=== PATIENT | male | born 1960 | race Caucasian/White ===

== ENCOUNTER 2016-07-21 15:59 | Observation (INO) | payer OTHER ==
[2016-07-21] MEDS ORDERED: RX INFO: IV CONTRAST WAS GIVEN 1 EACH MISC MISCELLANE PRN ×2 (16:20→16:21)
[2016-07-21] MEDS ORDERED: SODIUM CHLORIDE 0.9% 1,000 ML IV STA ×2 (16:20)
[2016-07-21] MEDS ORDERED: MORPHINE SULFATE 4 MG/ML SYRINGE IVP STA ×2 (16:24→17:39)
[2016-07-21] MEDS ORDERED: LORazepam 2 MG/ML SYRINGE IV STA (16:24)
[2016-07-21 16:40] LABS: Basophils # (A) 0.1 k/uL (0-0.2); Basophils % (A) 1 %; CH 29.9; CHCM 33.9; Eosinophils # (A) 0.4 k/uL (0-0.7); Eosinophils % (A) 4 %; HCT 46.2 % (39.0-53.0); HDW 2.46; HGB 15.5 gm/dL (13.0-17.5); Luc # (Auto) 0.27; Luc % (Auto) 3; Lymphocytes # (A) 3.3 k/uL (1.0-4.8); Lymphocytes % (A) 32 %; MCH 29.7 pg (25.0-35.0); MCHC 33.5 g/dL (31.0-37.0); MCV 88.8 fL (80.0-100.0); Mean Platelet Volume 7.2; Monocytes # (A) 0.7 k/uL (0-1.0); Monocytes % (A) 7 %; Neutrophils # (A) 5.4 k/uL (1.3-7.7); Neutrophils % (A) 54 %; WBC 10.1 k/uL (3.8-10.6); WBC (Perox) 9.85
--- NOTE | 2016-07-21 16:40 | ED ---
General Adult HPI - General Chief complaint: Chest Pain Stated complaint: Chest Pain Time Seen by Provider: 07/21/16 16:15 Source: patient, RN notes reviewed, old records reviewed Mode of arrival: wheelchair Limitations: no limitations - History of Present Illness Initial comments: This is a 55-year-old male here for evaluation of severe chest pain. 2 days of chest pain with significant worsening tonight. Ripping stabbing pain. Thinks it may be reflux. No history of high blood pressure Kossel diabetes pressure is of breath currently. Patient is very a couple, inability of history secondary to severe pain. No nausea vomiting or diarrhea no fevers. Travel history or sick contacts - Related Data Home Medications Medication Instructions Recorded Confirmed Aspirin [Adult Low Dose Aspirin EC] 81 mg PO DAILY 07/21/16 07/21/16 Esomeprazole Magnesium [NexIUM 22.3 mg PO DAILY 07/21/16 07/21/16 24Hr] Allergies Allergy/AdvReac Type Severity Reaction Status Date / Time No Known Allergies Allergy Verified 07/21/16 16:12 Review of Systems ROS Statement: Those systems with pertinent positive or pertinent negative responses have been documented in the HPI. ROS Other: All systems not noted in ROS Statement are negative. Past Medical History Past Medical History: No Reported History History of Any Multi-Drug Resistant Organisms: None Reported Past Surgical History: No Surgical Hx Reported Past Psychological History: No Psychological Hx Reported Smoking Status: Never smoker Past Alcohol Use History: Occasional Past Drug Use History: None Reported General Exam Limitations: no limitations General appearance: alert, in no apparent distress, anxious, in distress Head exam: Present: atraumatic, normocephalic, normal inspection Eye exam: Present: normal appearance, PERRL, EOMI. Absent: scleral icterus, conjunctival injection, periorbital swelling ENT exam: Present: normal exam, mucous membranes moist Neck exam: Present: normal inspection. Absent: tenderness, meningismus, lymphadenopathy Respiratory exam: Present: normal lung sounds bilaterally. Absent: respiratory distress, wheezes, rales, rhonchi, stridor Cardiovascular Exam: Present: regular rate, normal rhythm, normal heart sounds. Absent: systolic murmur, diastolic murmur, rubs, gallop, clicks GI/Abdominal exam: Present: soft, normal bowel sounds. Absent: distended, tenderness, guarding, rebound, rigid Extremities exam: Present: normal inspection, full ROM, normal capillary refill. Absent: tenderness, pedal edema, joint swelling, calf tenderness Back exam: Present: normal inspection Neurological exam: Present: alert, oriented X3, CN II-XII intact Psychiatric exam: Present: normal affect, normal mood Skin exam: Present: warm, dry, intact, normal color. Absent: rash Course Vital Signs 07/21/16 07/21/16 07/21/16 16:01 16:09 16:31 Temperature 98.3 F Pulse Rate 84 82 Respiratory 20 Rate Blood Pressure 160/112 159/106 O2 Sat by Pulse 98 93 L Oximetry - Reevaluation(s) Reevaluation #1: 07/21/16 18:27 Patient remains with severe chest pain EKG Findings - EKG Comments: EKG Findings:: EKG shows normal sinus rhythm rate of 84, NC 132, QRS 88, QTC 411. repeat. EKG shows normal sinus rhythm every 3, NC 134, QRS 84, QTC 404. Repeat. EKG shows normal sinus rhythm rate of 77, NC 134, QRS 80, QTC 414 Medical Decision Making - Medical Decision Making 55 male to ER for evaluation of severe anterior chest pain, ripping chest pain CT negative for dissection, patient will be admitted for cardiac observation. Patient is having current adequate pain control - Lab Data Result diagrams: 07/21/16 16:18 07/21/16 16:18 Lab Results 07/21/16 07/21/16 07/21/16 Range/Units 16:18 16:18 16:18 WBC 10.1 (3.8-10.6) k/uL RBC 5.20 (4.30-5.90) m/uL Hgb 15.5 (13.0-17.5) gm/dL Hct 46.2 (39.0-53.0) % MCV 88.8 (80.0-100.0) fL MCH 29.7 (25.0-35.0) pg MCHC 33.5 (31.0-37.0) g/dL RDW 13.0 (11.5-15.5) % Plt Count 263 (150-450) k/uL Neutrophils % 54 % Lymphocytes % 32 % Monocytes % 7 % Eosinophils % 4 % Basophils % 1 % Neutrophils # 5.4 (1.3-7.7) k/uL Lymphocytes # 3.3 (1.0-4.8) k/uL Monocytes # 0.7 (0-1.0) k/uL Eosinophils # 0.4 (0-0.7) k/uL Basophils # 0.1 (0-0.2) k/uL PT (9.0-12.0) sec INR (<1.1) APTT (22.0-30.0) sec D-Dimer (<0.60) mg/L FEU Sodium 142 (137-145) mmol/L Potassium 3.8 (3.5-5.1) mmol/L Chloride 107 (98-107) mmol/L Carbon Dioxide 23 (22-30) mmol/L Anion Gap 12 mmol/L BUN 22 H (9-20) mg/dL Creatinine 0.93 (0.66-1.25) mg/dL Est GFR (MDRD) Af Amer >60 (>60 ml/min/1.73 sqM) Est GFR (MDRD) Non-Af >60 (>60 ml/min/1.73 sqM) Glucose 106 H (74-99) mg/dL Calcium 9.5 (8.4-10.2) mg/dL Magnesium 2.1 (1.6-2.3) mg/dL Total Bilirubin 0.8 (0.2-1.3) mg/dL AST 35 (17-59) U/L ALT 46 (21-72) U/L Alkaline Phosphatase 84 (38-126) U/L Total Creatine Kinase 124 (55-170) U/L CK-MB (CK-2) 0.6 (0.0-2.4) ng/mL CK-MB (CK-2) Rel Index 0.5 Troponin I <0.012 (0.000-0.034) ng/mL NT-Pro-B Natriuret Pep pg/mL Total Protein 8.1 (6.3-8.2) g/dL Albumin 4.7 (3.5-5.0) g/dL Lipase 79 (23-300) U/L 07/21/16 07/21/16 Range/Units 16:18 16:18 WBC (3.8-10.6) k/uL RBC (4.30-5.90) m/uL Hgb (13.0-17.5) gm/dL Hct (39.0-53.0) % MCV (80.0-100.0) fL MCH (25.0-35.0) pg MCHC (31.0-37.0) g/dL RDW (11.5-15.5) % Plt Count (150-450) k/uL Neutrophils % % Lymphocytes % % Monocytes % % Eosinophils % % Basophils % % Neutrophils # (1.3-7.7) k/uL Lymphocytes # (1.0-4.8) k/uL Monocytes # (0-1.0) k/uL Eosinophils # (0-0.7) k/uL Basophils # (0-0.2) k/uL PT 10.1 (9.0-12.0) sec INR 1.0 (<1.1) APTT 22.9 (22.0-30.0) sec D-Dimer 0.67 H (<0.60) mg/L FEU Sodium (137-145) mmol/L Potassium (3.5-5.1) mmol/L Chloride (98-107) mmol/L Carbon Dioxide (22-30) mmol/L Anion Gap mmol/L BUN (9-20) mg/dL Creatinine (0.66-1.25) mg/dL Est GFR (MDRD) Af Amer (>60 ml/min/1.73 sqM) Est GFR (MDRD) Non-Af (>60 ml/min/1.73 sqM) Glucose (74-99) mg/dL Calcium (8.4-10.2) mg/dL Magnesium (1.6-2.3) mg/dL Total Bilirubin (0.2-1.3) mg/dL AST (17-59) U/L ALT (21-72) U/L Alkaline Phosphatase (38-126) U/L Total Creatine Kinase (55-170) U/L CK-MB (CK-2) (0.0-2.4) ng/mL CK-MB (CK-2) Rel Index Troponin I (0.000-0.034) ng/mL NT-Pro-B Natriuret Pep 94 pg/mL Total Protein (6.3-8.2) g/dL Albumin (3.5-5.0) g/dL Lipase (23-300) U/L - Radiology Data Radiology results: report reviewed (CTA chest is negative for acute disease), image reviewed Critical Care Time Critical Care Time: Yes Total Critical Care Time: 31 Disposition Clinical Impression: Chest pain Disposition: ADMITTED IP TO THIS HOSP Condition: Undetermined
[2016-07-21 16:50] LABS: ALT 46 U/L (21-72); AST 35 U/L (17-59); Alkaline Phosphatase 84 U/L (38-126); Anion Gap 12 mmol/L; Blood Urea Nitrogen 22 mg/dL (9-20); Calcium 9.5 mg/dL (8.4-10.2); Carbon Dioxide 23 mmol/L (22-30); Chloride 107 mmol/L (98-107); Glucose 106 mg/dL (74-99); Magnesium 2.1 mg/dL (1.6-2.3); Non-African American GFR(MDRD) >60 (>60 ml/min/1.73 sqM); Potassium 3.8 mmol/L (3.5-5.1); Sodium 142 mmol/L (137-145); Total Bilirubin 0.8 mg/dL (0.2-1.3); Total Protein 8.1 g/dL (6.3-8.2)
[2016-07-21 16:51] LABS: Creatine Kinase 124 U/L (55-170)
[2016-07-21 16:59] LABS: Partial Thromboplastin Time 22.9 sec (22.0-30.0); Prothrombin Time 10.1 sec (9.0-12.0)
[2016-07-21 17:04] LABS: Creatine Kinase MB 0.6 ng/mL (0.0-2.4); Troponin I <0.012 ng/mL (0.000-0.034)
--- NOTE | 2016-07-21 17:46 | CT ---
CTA of the aorta HISTORY: Left upper quadrant pain, chest pain Helical acquisition obtained through the aorta. Post administration of intravenous contrast images al so performed through the aorta following 100 cc Omni 350 IV. Three-dimensional reconstructions perfor med on an alternate workstation Ascending aorta measures 3.8 cm. Descending aorta measures 3.2 cm. Abdominal aorta shows normal calib er, no evident dissection. Common iliac arteries are normal. The celiac axis, superior mesenteric, in ferior mesenteric arteries, renal arteries are patent. Three-vessel arch is present. The left and rig ht subclavian, left and right common carotid arteries are present and patent proximally. The innomina te artery is patent. Spondylolysis present at L5, there is an anterolisthesis grade 1 L5-S1. Basilar atelectatic changes a re present bilaterally, there may be some pneumonitis present at the lung bases. No endobronchial les ion. Scattered emphysematous changes are present within the lungs. No endobronchial lesion, pleural o r pericardial effusion. There are coronary artery calcifications. IMPRESSION: No aortic abnormalities evident
[2016-07-21] MEDS ORDERED: NITROGLYCERIN SL TABS 0.4 MG TAB SUBLINGUAL PRN (18:00)
[2016-07-21] MEDS ORDERED: HEPARIN SODIUM,PORCINE/D5W PMX 25,000 UNIT in DEXTROSE/WATER 1 500ML.BAG IV SCH (18:00)
[2016-07-21] MEDS ORDERED: HEPARIN SODIUM,PORCINE 5,000 UNIT/ML 1 ML VIAL IV PRN (18:00)
[2016-07-21] MEDS ORDERED: HEPARIN SODIUM,PORCINE 5,000 UNIT/ML 1 ML VIAL IV ONE (18:00)
[2016-07-21] MEDS ORDERED: ASPIRIN 81 MG CHEW PO STA (18:00)
[2016-07-21] MEDS ORDERED: KETOROLAC 30 MG/ML 1 ML VIAL IVP STA (18:21)
[2016-07-21] MEDS ORDERED: HYDROmorphone 1 MG/ML 1 ML SYRINGE IVP PRN (18:21)
[2016-07-21] MEDS ORDERED: HYDROmorphone 2 MG/ML 1 ML SYRINGE IVP STA (18:21)
[2016-07-21 21:21] VITALS: BMI 27.1
[2016-07-21] MEDS ORDERED: ONDANSETRON 4 MG/2 ML VIAL IVP PRN (21:29)
[2016-07-22 00:43] LABS: Creatine Kinase 96 U/L (55-170)
[2016-07-22 00:56] LABS: Creatine Kinase MB 0.5 ng/mL (0.0-2.4); Troponin I <0.012 ng/mL (0.000-0.034)
[2016-07-22 05:46] LABS: Mean Platelet Volume 7.3
[2016-07-22 06:16] LABS: Cholesterol 216 mg/dL (<200); HDL Cholesterol 55 mg/dL (40-60); Triglycerides 109 mg/dL (<150)
[2016-07-22 06:43] LABS: Creatine Kinase 92 U/L (55-170)
[2016-07-22 06:56] LABS: Creatine Kinase MB 0.5 ng/mL (0.0-2.4); Troponin I <0.012 ng/mL (0.000-0.034)
[2016-07-22 07:37] VITALS: BP 132/83; PULSE 60; RESP 18; TEMP 97.8
--- NOTE | 2016-07-22 08:50 | P.CRDCN ---
History of Present Illness Consult date: 07/22/16 Chief complaint: Chest pain History of present illness: This is a pleasant 55-year-old gentleman with no significant past medical history presented to the emergency room with chest pain. The patient was in his usual state of health until about 3 days ago when he started experiencing discomfort in the lower left chest with some radiation to the left shoulder. The discomfort is not exertional. It's worse once he take a deep breath and once he cough as well. No associated symptoms of shortness of breath, sweating, dizziness or lightheadedness or syncope. On physical examination the chest discomfort is quite reproducible. The EKG showed sinus rhythm with nonspecific changes. 3 sets of cardiac enzymes were checked and came in to be unremarkable. The patient's chest discomfort is atypical and reproducible by examination. He was ruled out for acute coronary event. He does not have risk factors for CAD. From the cardiovascular standpoint overview, he can be discharged home on nonsteroid anti-inflammatory medications. If the chest discomfort did not improve I advised the patient to come back to the hospital. Past Medical History Past Medical History: GERD/Reflux History of Any Multi-Drug Resistant Organisms: None Reported Past Surgical History: No Surgical Hx Reported Additional Past Surgical History / Comment(s): Corrective eye surgery when 13 Past Anesthesia/Blood Transfusion Reactions: No Reported Reaction Past Psychological History: No Psychological Hx Reported Smoking Status: Former smoker Past Alcohol Use History: Occasional Past Drug Use History: None Reported - Past Family History Father Additional Family Medical History / Comment(s): Parkinsons Mother Family Medical History: No Reported History Medications and Allergies Home Medications Medication Instructions Recorded Confirmed Type Aspirin [Adult Low Dose Aspirin EC] 81 mg PO DAILY 07/21/16 07/21/16 History Esomeprazole Magnesium [NexIUM 22.3 mg PO DAILY 07/21/16 07/21/16 History 24Hr] Allergies Allergy/AdvReac Type Severity Reaction Status Date / Time No Known Allergies Allergy Verified 07/21/16 21:15 Physical Exam Vitals: Vital Signs Temp Pulse Pulse Resp BP BP Pulse Ox 07/22/16 08:00 60 18 07/22/16 07:37 97.8 F 60 18 132/83 95 07/22/16 03:57 16 07/22/16 03:54 98.0 F 64 16 109/74 93 L 05/08/17 00:00 16 07/21/16 23:49 97.7 F 65 16 112/77 93 L 07/21/16 21:15 18 07/21/16 19:58 97.7 F 70 16 139/87 95 07/21/16 18:28 98.2 F 76 18 126/84 96 Intake and Output 07/21/16 07/22/16 07/22/16 22:59 06:59 14:59 Intake Total 155.277 Balance 155.277 Intake: Intake, IV Titration 155.277 Amount Heparin Sodium,Porcine/ 155.277 D5w Pmx 25,000 unit In Dextrose/Water 1 500ml. bag @ 11 UNITS/KG/HR 19. 95 mls/hr IV .Q24H LENNY Rx #:[id number] Other: # Voids 1 1 Weight 90.7 kg - Constitutional General appearance: no acute distress - Respiratory Respiratory: bilateral: CTA - Cardiovascular Rhythm: regular Heart sounds: normal: S1, S2 Results 07/22/16 05:18 07/21/16 16:18 Cardiac Enzymes 07/21/16 07/22/16 Range/Units 23:48 05:18 CK-MB (CK-2) 0.5 0.5 (0.0-2.4) ng/mL Troponin I <0.012 <0.012 (0.000-0.034) ng/mL Coagulation 07/21/16 Range/Units 23:48 APTT 32.6 H (22.0-30.0) sec Lipids 07/22/16 Range/Units 05:18 Triglycerides 109 (<150) mg/dL Cholesterol 216 H (<200) mg/dL HDL Cholesterol 55 (40-60) mg/dL CBC 07/22/16 Range/Units 05:18 Plt Count 195 (150-450) k/uL Current Medications Generic Name Dose Route Start Last Admin Trade Name Freq PRN Reason Stop Dose Admin Aspirin 325 mg 07/22/16 09:00 Aspirin PO DAILY [facility] Atorvastatin Calcium 80 mg 07/22/16 09:00 Lipitor PO DAILY [facility] Heparin Sodium (Porcine) 0 unit 07/21/16 18:00 Heparin IV Q6HR PRN Low PTT Protocol Hydromorphone HCl 1 mg 07/21/16 18:21 Dilaudid IVP Q4HR PRN Severe Pain Heparin Sodium/Dextrose 25,000 500 mls @ 19.95 mls/hr 07/21/16 18:00 02:27 unit/ IV Solution IV 14 units/kg/hr .Q24H LENNY 25.4 mls/hr Protocol Titration 11 UNITS/KG/HR Miscellaneous Information 1 each 07/21/16 16:20 Rx Info: Iv Contrast Was Given MISCELLANE 07/23/16 16:21 DAILY PRN Per Protocol Miscellaneous Information 1 each 07/21/16 16:21 Rx Info: Iv Contrast Was Given MISCELLANE 07/23/16 16:21 DAILY PRN Per Protocol Nitroglycerin 0.4 mg 07/21/16 18:00 Nitrostat SUBLINGUAL Q5M PRN Chest Pain Ondansetron HCl 4 mg 07/21/16 21:29 Zofran IVP Q6HR PRN Nausea And Vomiting Intake and Output 07/21/16 07/22/16 07/22/16 22:59 06:59 14:59 Intake Total 155.277 Balance 155.277 Intake: Intake, IV Titration 155.277 Amount Heparin Sodium,Porcine/ 155.277 D5w Pmx 25,000 unit In Dextrose/Water 1 500ml. bag @ 11 UNITS/KG/HR 19. 95 mls/hr IV .Q24H [facility] Rx #:[id number] Other: # Voids 1 1 Weight 90.7 kg 07/22/16 05:18 Assessment and Plan Plan: Assessment #1 atypical and reproducible chest discomfort Plan #1 the patient was ruled out for acute coronary event #2 from the cardiac standpoint he can be discharged home
[2016-07-22] MEDS ORDERED: ATORVASTATIN 80 MG TAB PO SCH (09:00)
[2016-07-22] MEDS ORDERED: ASPIRIN 325 MG TAB PO SCH (09:00)
[2016-07-22] MEDS ORDERED: IBUPROFEN 800 MG TAB PO STA (09:32)
--- NOTE | 2016-07-22 13:13 | P.HPIM ---
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 Symptoms become slightly bit worse symptoms has been on for the last 3 days with patient ended up working in the yard on Friday felt slightly but better till he went to the house and ended up having significant problem with chest pain and slight shortness of breath. With above complaint ended up coming to the emergency department at [facility] where was seen and evaluated his CK with troponin came back negative EKG didn't show any major change. The patient risk factor of age patient was admitted to the hospital. Review of Systems Constitutional: Reports anorexia, Reports fatigue, Reports lethargy, Reports malaise, Reports weakness, Denies as per HPI, Denies chills, Denies chronic headaches, Denies chronic pain, Denies daytime sleepiness, Denies fever, Denies night sweats, Denies poor appetite, Denies sweats, Denies weight gain, Denies weight loss Eyes: bilateral as per HPI Ears: bilateral: decreased hearing Ears, nose, mouth and throat: Reports nasal congestion, Reports sinus pain, Reports sinus pressure, Denies as per HPI, Denies ant. neck pain, Denies bleeding gums, Denies dental pain, Denies dysphagia, Denies epistaxis, Denies headache, Denies hoarseness, Denies mouth pain, Denies nasal discharge, Denies neck fullness/pressure, Denies neck lump, Denies nose pain, Denies odynophagia, Denies post-nasal drip, Denies swelling in mouth, Denies swelling in throat, Denies sore throat, Denies vertigo, Denies voice changes Breasts: bilateral: as per HPI Cardiovascular: Reports chest pain, Reports edema, Denies as per HPI, Denies claudication, Denies decreased exercise tolerance, Denies dyspnea on exertion, Denies high blood pressure, Denies irregular heart beat, Denies leg edema, Denies lightheadedness, Denies orthopnea, Denies palpitations, Denies paroxysmal nocturnal dyspnea, Denies phlebitis, Denies rapid heart beat, Denies shortness of breath, Denies syncope Respiratory: Reports congestion, Reports dyspnea, Denies as per HPI, Denies cough, Denies cough with sputum, Denies excessive sputum, Denies hemoptysis, Denies home oxygen, Denies pain, Denies pain on inspiration, Denies pleurisy, Denies respiratory infections, Denies sleep apnea, Denies snoring, Denies wheezing Gastrointestinal: Reports abdominal pain, Reports bloating, Reports dyspepsia, Reports early satiety, Reports nausea, Denies as per HPI, Denies belching, Denies BRBPR, Denies change in bowel habits, Denies coffee ground emesis, Denies constipation, Denies diarrhea, Denies excessive gas, Denies heartburn, Denies hematemesis, Denies hematochezia, Denies indigestion, Denies jaundice, Denies lactose intolerance, Denies loss of appetite, Denies melena, Denies vomiting Genitourinary: Reports dysuria, Reports polyuria, Reports urinary frequency, Denies as per HPI, Denies decreased libido, Denies difficulties fathering child , Denies discharge, Denies erectile dysfunction, Denies flank pain, Denies genital pain, Denies genital sores, Denies hematuria, Denies impotence, Denies incontinence, Denies kidney stones, Denies nocturia, Denies testicular lump, Denies testicular pain, Denies urinary hesitancy, Denies urinary retention Musculoskeletal: Denies as per HPI, Denies arm numbness/tingling, Denies atrophy , Denies fractures, Denies frequent falls, Denies gait dysfunction, Denies hot joints, Denies leg numbness/tingling, Denies limitation of motion, Denies loss of height, Denies low back pain, Denies morning stiffness, Denies muscle cramps , Denies muscle weakness, Denies myalgias, Denies neck pain, Denies neck stiffness, Denies prior amputations, Denies redness of joints, Denies shooting arm pain, Denies shooting leg pain Integumentary: Denies as per HPI, Denies acne, Denies boils, Denies brittle nails, Denies change in hair/nails, Denies color changes, Denies darkening of skin, Denies depigmentation, Denies dryness, Denies foot/leg ulcers, Denies growths, Denies hirsutism, Denies lesions, Denies onychomycosis, Denies pruritus , Denies rash, Denies sores, Denies striae, Denies unusual bruising, Denies wounds Neurological: Denies as per HPI, Denies aphasia, Denies ataxia, Denies balance difficulties, Denies burning pain, Denies change in mentation, Denies change in smell/taste, Denies change in speech, Denies confusion, Denies convulsions, Denies double vision, Denies gait dysfunction, Denies head injury, Denies headaches, Denies hearing difficulties, Denies lack of coordination, Denies loss of vision, Denies memory loss, Denies migraines, Denies motor disturbance, Denies numbness, Denies paralysis, Denies paresthesias, Denies seizures, Denies sensory deficit, Denies spasticity, Denies syncope, Denies tic, Denies tingling , Denies transient paralysis, Denies tremors, Denies vertigo, Denies weakness, Denies visual changes Psychiatric: Denies as per HPI, Denies anhedonia, Denies anxiety, Denies anxiety attacks, Denies change in appetite, Denies change in libido, Denies change in sleep habits, Denies confusion, Denies depression, Denies difficulty concentrating, Denies disorientation, Denies hallucinations, Denies hopelessness , Denies hypersomnia, Denies insomnia, Denies irritability, Denies memory loss, Denies mood swings, Denies paranoia, Denies sadness/tearfulness, Denies sleep disturbances, Denies suicidal ideation Endocrine: Denies as per HPI, Denies cold intolerance, Denies deepening of the voice, Denies excessive sweating, Denies excessive thirst, Denies fatigue, Denies flushing, Denies heat intolerance, Denies high blood sugars, Denies increase in ring/shoe/hat size, Denies low blood sugars, Denies nocturia, Denies palpitations, Denies polydipsia, Denies polyphagia, Denies polyuria, Denies proptosis, Denies recent glucocorticoid use, Denies thyroid mass, Denies weight change Hematologic/Lymphatic: Denies as per HPI, Denies easy bleeding, Denies easy bruising, Denies lymphadenopathy, Denies lymphedema, Denies thrombophilia Allergic/Immunologic: Denies as per HPI, Denies allergic rhinitis, Denies anaphylaxis, Denies angioedema, Denies gluten intolerance, Denies persistent infections, Denies seasonal allergies, Denies urticaria, Denies wheezing Past Medical History Past Medical History: GERD/Reflux History of Any Multi-Drug Resistant Organisms: None Reported Past Surgical History: No Surgical Hx Reported Additional Past Surgical History / Comment(s): Corrective eye surgery when 13 Past Anesthesia/Blood Transfusion Reactions: No Reported Reaction Past Psychological History: No Psychological Hx Reported Smoking Status: Former smoker Past Alcohol Use History: Occasional Past Drug Use History: None Reported - Past Family History Father Additional Family Medical History / Comment(s): Parkinsons Mother Family Medical History: No Reported History Medications and Allergies Home Medications Medication Instructions Recorded Confirmed Type Aspirin [Adult Low Dose Aspirin EC] 81 mg PO DAILY 07/21/16 07/21/16 History Esomeprazole Magnesium [NexIUM 22.3 mg PO DAILY 07/21/16 07/21/16 History 24Hr] Allergies Allergy/AdvReac Type Severity Reaction Status Date / Time No Known Allergies Allergy Verified 07/21/16 21:15 Physical Exam Vitals: Vital Signs Temp Pulse Pulse Resp BP BP Pulse Ox 07/22/16 08:00 60 18 07/22/16 07:37 97.8 F 60 18 132/83 95 07/22/16 03:57 16 07/22/16 03:54 98.0 F 64 16 109/74 93 L 07/22/16 00:00 16 07/21/16 23:49 97.7 F 65 16 112/77 93 L 07/21/16 21:15 18 07/21/16 19:58 97.7 F 70 16 139/87 95 07/21/16 18:28 98.2 F 76 18 126/84 96 Intake and Output 07/21/16 07/22/16 07/22/16 22:59 06:59 14:59 Intake Total 155.277 Balance 155.277 Intake: Intake, IV Titration 155.277 Amount Heparin Sodium,Porcine/ 155.277 D5w Pmx 25,000 unit In Dextrose/Water 1 500ml. bag @ 11 UNITS/KG/HR 19. 95 mls/hr IV .Q24H [facility] Rx #:[id number] Other: # Voids 1 1 Weight 90.7 kg - Constitutional General appearance: no average body habitus, cooperative, no disheveled, no mild distress, no morbidly obese, no acute distress, no obese, no severe distress, no thin - EENT Eyes: no abnormal pupil, no anicteric sclerae, no disc margins sharp, no edentulous, no EOMI, no PERRLA, no fundus normal, no photophobia, no dentition normal, no poor dentition, no ptosis, no scleral icterus, normal appearance ENT: no hard of hearing, no hearing grossly normal, no NA/AT, normal oropharynx , no other, no pharyngeal erythema, no thrush, no tonsillar exudates, no tonsillar swelling Ears: bilateral: normal - Neck Neck: no lymphadenopathy, normal ROM, no other, no rigidity, no stridor, no thyromegaly Carotids: bilateral: upstroke normal Thyroid: bilateral: normal size - Respiratory Respiratory: bilateral: CTA - Cardiovascular Rhythm: regular Heart sounds: normal: S1, S2 Abnormal Heart Sounds: systolic murmur - Gastrointestinal General gastrointestinal: no absent bowel sounds, no decreased bowel sounds, distended, no hepatomegaly, no hyperactive bowel sounds, normal bowel sounds, no organomegaly, no rigid, no scaphoid, soft, no splenomegaly, no tenderness, no umbilical hernia, no ventral hernia - Integumentary Integumentary: no calor, no cellulitis, no cyanotic, no decreased turgor, no flushed, no jaundiced, no normal, no normal turgor, no pale, no rash, no ulcer - Neurologic Neurologic: CNII-XII intact - Musculoskeletal Musculoskeletal: gait normal, generalized weakness, no strength equal bilaterally, no right sided weakness, no left sided weakness - Psychiatric Psychiatric: A&O x's 3, no appropriate affect, no intact judgment & insight Results CBC & Chem 7: 07/22/16 05:18 07/21/16 16:18 Labs: Abnormal Lab Results - Last 24 Hours (Table) 07/21/16 07/22/16 07/22/16 Range/Units 23:48 05:18 08:39 APTT 32.6 H 33.6 H (22.0-30.0) sec Cholesterol 216 H (<200) mg/dL LDL Cholesterol, Calc 139 H (0-99) mg/dL Thrombosis Risk Factor Assmnt - DVT/VTE Prophylaxis DVT/VTE Prophylaxis: Mechanical Prophylaxis ordered - Choose All That Apply Each Factor Represents 1 point: Age 41-60 years Thrombosis Risk Factor Assessment Total Risk Factor Score: 1 Thrombosis Risk Factor Assessment Level: Low Risk Assessment and Plan Plan: 1 atypical chest pain: Normal CK and troponin, no EKG abnormality or change. With patient's current symptoms CK with troponin 3 will be done patient be seeing cardiology if any abnormality patient might require cardiac testing including stress echo or echocardiogram. If any abnormal finding with the CK patient might require more invasive cardiac catheter. 2 hyperlipidemia: Patient has been on diet control only continue current medication. 3 GERD: Patient is on Nexium 40 mg daily. 4 hyperglycemia: On diet control blood sugars marginal. GI prophylaxis: Patient be on Nexium. DVT prophylaxis: Patient be on heparin subcutaneous with early mobilization. CODE STATUS: Full code. Expectation from this admission: Patient be in the hospital for at least one night.
--- NOTE | 2016-07-22 13:15 | P.DS ---
Providers Date of admission: 07/21/16 18:01 Attending physician: Florencio Genao Primary care physician: Samm العلي [facility] Course: Chief Complaint: Chest pain, hyperlipidemia, hyperglycemia 54-year-old male one of Dr. mann patient with past medical history of GERD along with hyperlipidemia and hyperglycemia who apparently has been having midsternal left-sided chest pain radiating to the upper part of the left side with worsening symptom when taking a deep breath or leaning on the side. Symptoms become slightly bit worse symptoms has been on for the last 3 days with patient ended up working in the yard on Friday felt slightly but better till he went to the house and ended up having significant problem with chest pain and slight shortness of breath. With above complaint ended up coming to the emergency department at [facility] where was seen and evaluated his CK with troponin came back negative EKG didn't show any major change. The patient risk factor of age patient was admitted to the hospital. Assessment and Plan Plan: 1 atypical chest pain: Normal CK and troponin, no EKG abnormality or change. With patient's current symptoms CK with troponin 3 will be done patient be seeing cardiology if any abnormality patient might require cardiac testing including stress echo or echocardiogram. If any abnormal finding with the CK patient might require more invasive cardiac catheter. 2 hyperlipidemia: Patient has been on diet control only continue current medication. 3 GERD: Patient is on Nexium 40 mg daily. 4 hyperglycemia: On diet control blood sugars marginal. GI prophylaxis: Patient be on Nexium. DVT prophylaxis: Patient be on heparin subcutaneous with early mobilization. CODE STATUS: Full code. Hospital course: Patient was hospitalized overnight was seen and evaluated by cardiology and felt his symptoms are atypical: Mostly pleurisy or costochondritis. Patient was started on Medrol Dosepak no testing was necessary patient will be discharged home to follow-up as an outpatient by his PCP and cardiology in the next few days. His final diagnoses was: atypical chest pain most likely pleurisy and mild costochondritis. Patient Condition at Discharge: Undetermined Plan - Discharge Summary New Discharge Prescriptions: methylPREDNISolone Dose Pack [Medrol Dose Pack] 4 mg PO DIRECTED #21 package Discharge Medication List Aspirin [Adult Low Dose Aspirin EC] 81 mg PO DAILY 07/21/16 [History] Esomeprazole Magnesium [NexIUM 24Hr] 22.3 mg PO DAILY 07/21/16 [History] methylPREDNISolone Dose Pack [Medrol Dose Pack] 4 mg PO DIRECTED #21 package 07/22/16 [Rx] Follow up Appointment(s)/Referral(s): Sb Roque MD [STAFF PHYSICIAN] - 1 Week Samm العلي MD [Primary Care Provider] - 1 Week Patient Instructions/Handouts: Chest Pain (ED) Discharge Disposition: HOME SELF-CARE
== END 2016-07-22 11:45 | disposition home or self-care (01) ==
LOC: EC 15:59 → 3SUR 18:01 → 3OBS 07-22 11:57
PROVIDERS: ADMIT Internal Medicine; ATTEND Internal Medicine
DX: R07.89 Other chest pain (principal); E78.5 Hyperlipidemia, unspecified; K21.9 Gastro-esophageal reflux disease without esophagitis; R73.9 Hyperglycemia, unspecified; Z79.82 Long term (current) use of aspirin; Z79.899 Other long term (current) drug therapy; Z87.891 Personal history of nicotine dependence; Z82.0 Family history of epilepsy and other diseases of the nervous system
CPT/HCPCS: 96365; 96366 ×2; 96376; 96361; 96375; 99291; 36415; 93005; 85379; 83880; 80061; 80053; 82550 ×2; 82553 ×2; 83690; 83735; 84484 ×2; 85025; 85049; 85610; 85730 ×2; 75635; 71275; G0378 ×2; J2060; J2270; J1170; J1644 ×2; Q9967; J1885

== ENCOUNTER 2018-12-01 09:18 | Emergency (ER) | payer OTHER ==
[2018-12-01 09:33] VITALS: TEMP 98.2
--- NOTE | 2018-12-01 10:13 | XR ---
EXAMINATION TYPE: XR KUB DATE OF EXAM: 12/01/2018 10:07 AM CLINICAL HISTORY: Pain and constipation. TECHNIQUE: Two Upright KUB images of the abdomen are obtained. COMPARISON: CTA July 21, 2016. FINDINGS: Some paucity of bowel gas. Gas is seen in nondistended stomach as well as scattered small a nd large bowel loops. There is no visceromegaly, pneumoperitoneum, or abnormal calcification apprecia sloane. The lung bases are clear and the osseous structures are intact. IMPRESSION: Overall nonspecific but felt to be nonobstructive bowel gas pattern.
[2018-12-01] MEDS ORDERED: SODIUM CHLORIDE 0.9% 1,000 ML IV STA (10:18)
--- NOTE | 2018-12-01 10:20 | ED ---
General Adult HPI - General Chief complaint: Recheck/Abnormal Lab/Rx Stated complaint: CONSTIPATION, BURING Time Seen by Provider: 12/01/18 09:42 Source: patient, RN notes reviewed Mode of arrival: ambulatory Limitations: no limitations - History of Present Illness Initial comments: This a 58-year-old male presents emergency Department chief complaint of abdominal discomfort, constipation. Patient states that he has not had a good bowel movement he denied days. Patient states he constantly feels he has to go. Patient states that he said some stool, but nothing much. He did have some blood when he wiped today. He denies any prior abdominal surgeries no history of obstruction. He does admit to occasional nausea but no vomiting no fevers chills no dysuria no hematuria. Patient states that he was on antibiotics but finished week or so ago. - Related Data Home Medications Medication Instructions Recorded Confirmed Bisacodyl [Dulcolax] 5 mg PO DAILY PRN 12/01/18 12/01/18 Allergies Allergy/AdvReac Type Severity Reaction Status Date / Time No Known Allergies Allergy Verified 12/01/18 09:30 Review of Systems ROS Statement: Those systems with pertinent positive or pertinent negative responses have been documented in the HPI. ROS Other: All systems not noted in ROS Statement are negative. Past Medical History Past Medical History: GERD/Reflux History of Any Multi-Drug Resistant Organisms: None Reported Past Surgical History: No Surgical Hx Reported Additional Past Surgical History / Comment(s): Corrective eye surgery when 13 Past Anesthesia/Blood Transfusion Reactions: No Reported Reaction Past Psychological History: No Psychological Hx Reported Smoking Status: Former smoker Past Alcohol Use History: Occasional Past Drug Use History: None Reported - Past Family History Father Additional Family Medical History / Comment(s): Parkinsons Mother Family Medical History: No Reported History General Exam Limitations: no limitations General appearance: alert, in no apparent distress Head exam: Present: atraumatic, normocephalic, normal inspection Eye exam: Present: normal appearance, PERRL, EOMI. Absent: scleral icterus, conjunctival injection, periorbital swelling ENT exam: Present: normal exam, normal oropharynx, mucous membranes moist Neck exam: Present: normal inspection, full ROM. Absent: tenderness, meningismus, lymphadenopathy Respiratory exam: Present: normal lung sounds bilaterally. Absent: respiratory distress, wheezes, rales, rhonchi, stridor Cardiovascular Exam: Present: regular rate, normal rhythm, normal heart sounds. Absent: systolic murmur, diastolic murmur, rubs, gallop, clicks GI/Abdominal exam: Present: soft, tenderness, normal bowel sounds. Absent: distended, guarding, rebound, rigid Back exam: Absent: CVA tenderness (R), CVA tenderness (L) Skin exam: Present: warm, dry, intact, normal color. Absent: rash Course Vital Signs 12/01/18 09:31 Temperature 98.2 F Pulse Rate 71 Respiratory 18 Rate Blood Pressure 161/80 O2 Sat by Pulse 97 Oximetry Medical Decision Making - Medical Decision Making 88-year-old male present emergency from for abdominal pain, sensation of constipation. CT was obtained and labs after x-ray was nonspecific no major signs constipation. Patient does have some inflammatory changes consistent with colitis. This most likely is inflammatory versus viral he'll follow-up with colonoscopy, PCP and GI. - Lab Data Result diagrams: 12/01/18 11:00 12/01/18 11:00 Lab Results 12/01/18 12/01/18 12/01/18 Range/Units 11:00 11:00 12:05 WBC 9.5 (3.8-10.6) k/uL RBC 5.32 (4.30-5.90) m/uL Hgb 15.8 (13.0-17.5) gm/dL Hct 46.6 (39.0-53.0) % MCV 87.6 (80.0-100.0) fL MCH 29.7 (25.0-35.0) pg MCHC 33.9 (31.0-37.0) g/dL RDW 13.0 (11.5-15.5) % Plt Count 264 (150-450) k/uL Neutrophils % 80 % Lymphocytes % 11 % Monocytes % 5 % Eosinophils % 1 % Basophils % 1 % Neutrophils # 7.6 (1.3-7.7) k/uL Lymphocytes # 1.1 (1.0-4.8) k/uL Monocytes # 0.5 (0-1.0) k/uL Eosinophils # 0.1 (0-0.7) k/uL Basophils # 0.1 (0-0.2) k/uL Sodium 141 (137-145) mmol/L Potassium 4.5 (3.5-5.1) mmol/L Chloride 106 (98-107) mmol/L Carbon Dioxide 22 (22-30) mmol/L Anion Gap 13 mmol/L BUN 19 (9-20) mg/dL Creatinine 1.01 (0.66-1.25) mg/dL Est GFR (CKD-EPI)AfAm >90 (>60 ml/min/1.73 sqM) Est GFR (CKD-EPI)NonAf 83 (>60 ml/min/1.73 sqM) Glucose 104 H (74-99) mg/dL Calcium 9.9 (8.4-10.2) mg/dL Total Bilirubin 0.6 (0.2-1.3) mg/dL AST 30 (17-59) U/L ALT 46 (21-72) U/L Alkaline Phosphatase 106 (38-126) U/L Total Protein 8.4 H (6.3-8.2) g/dL Albumin 4.9 (3.5-5.0) g/dL Lipase 153 (23-300) U/L Urine Color Yellow Urine Appearance Clear (Clear) Urine pH 5.0 (5.0-8.0) Ur Specific [place] 1.049 H (1.001-1.035) Urine Protein Negative (Negative) Urine Glucose (UA) Negative (Negative) Urine Ketones Negative (Negative) Urine Blood Negative (Negative) Urine Nitrite Negative (Negative) Urine Bilirubin Negative (Negative) Urine Urobilinogen <2.0 (<2.0) mg/dL Ur Leukocyte Esterase Negative (Negative) Disposition Clinical Impression: Colitis Disposition: HOME SELF-CARE Condition: Stable Instructions (If sedation given, give patient instructions): Colitis (ED) Additional Instructions: Please return to the Emergency Department if symptoms worsen or any other conc erns. Is patient prescribed a controlled substance at d/c from ED?: No Referrals: Samm العلي MD [Primary Care Provider] - 1-2 days Melinda Nelson MD [STAFF PHYSICIAN] - 1-2 days Time of Disposition: 12:24
[2018-12-01 11:16] LABS: Basophils # (A) 0.1 k/uL (0-0.2); Basophils % (A) 1 %; Eosinophils # (A) 0.1 k/uL (0-0.7); Eosinophils % (A) 1 %; HCT 46.6 % (39.0-53.0); HGB 15.8 gm/dL (13.0-17.5); Lymphocytes # (A) 1.1 k/uL (1.0-4.8); Lymphocytes % (A) 11 %; MCH 29.7 pg (25.0-35.0); MCHC 33.9 g/dL (31.0-37.0); MCV 87.6 fL (80.0-100.0); Mean Platelet Volume 7.4; Monocytes # (A) 0.5 k/uL (0-1.0); Monocytes % (A) 5 %; Neutrophils # (A) 7.6 k/uL (1.3-7.7); Neutrophils % (A) 80 %; Platelet Count 264 k/uL (150-450); RBC 5.32 m/uL (4.30-5.90); WBC 9.5 k/uL (3.8-10.6)
[2018-12-01 11:36] LABS: ALT 46 U/L (21-72); AST 30 U/L (17-59); African American GFR (CKD) >90 (>60 ml/min/1.73 sqM); Albumin 4.9 g/dL (3.5-5.0); Alkaline Phosphatase 106 U/L (38-126); Anion Gap 13 mmol/L; Blood Urea Nitrogen 19 mg/dL (9-20); Calcium 9.9 mg/dL (8.4-10.2); Carbon Dioxide 22 mmol/L (22-30); Chloride 106 mmol/L (98-107); Glucose 104 mg/dL (74-99); Potassium 4.5 mmol/L (3.5-5.1); Sodium 141 mmol/L (137-145); Total Bilirubin 0.6 mg/dL (0.2-1.3); Total Protein 8.4 g/dL (6.3-8.2)
--- NOTE | 2018-12-01 11:50 | CT ---
EXAMINATION TYPE: CT abdomen pelvis w con DATE OF EXAM: 12/01/2018 COMPARISON: CTA aorta July 21, 2016. HISTORY: Abdominal pain and constipation. CT DLP: 1223.8 mGycm, Automated Exposure Control for Dose Reduction was Utilized. CONTRAST: CT scan of the abdomen and pelvis is performed with oral and with IV Contrast, patient injected with 100 mL of Isovue 300. FINDINGS: LUNG BASES: Dependent atelectasis in both bases. LIVER/GB: No significant abnormality is appreciated. PANCREAS: No significant abnormality is seen. SPLEEN: No significant abnormality is seen. ADRENALS: No significant abnormality is seen. KIDNEYS: Symmetric cortical medullary uptake and excretion without hydronephrosis seen bilaterally. BOWEL: Normal-appearing appendix in the right lower quadrant. Evaluation of bowel suboptimal secondar y to lack of enteric contrast. Some diverticula in the sigmoid colon with mild wall thickening (sigmo id colon into the rectum. No significant surrounding fat stranding. PROSTATE/SEMINAL VESICLES: No gross abnormality seen. LYMPH NODES: No greater than 1cm abdominal or pelvic lymph nodes are appreciated. OSSEOUS STRUCTURES: Bilateral pars defect with grade 1 anterolisthesis L5 on S1 moderate to severe di sc space narrowing lumbosacral junction with vacuum disc phenomena. OTHER: Mild mixed plaque abdominal aorta extending into branch vessels. IMPRESSION: 1. No bowel obstruction is present. Perhaps mild colitis distal colon versus products of poor distent ion, correlate clinically. 2. Bilateral pars defect L5 level with spondylolisthesis L5-S1 level and associated degenerative edmonds ge noted.
[2018-12-01 12:13] LABS: Appearance,Urine Clear (Clear); Bilirubin,Urine Negative (Negative); Blood,Urine Negative (Negative); Color,Urine Yellow; Glucose,Urine (UA) Negative (Negative); Ketones,Urine Negative (Negative); Leukocyte Esterase,Urine Negative (Negative); Nitrite,Urine Negative (Negative); Protein,Urine Negative (Negative); Urobilinogen,Urine <2.0 mg/dL (<2.0)
[2018-12-01 12:15] LABS: Specific Gravity,Urine 1.049 (1.001-1.035)
[2018-12-01 14:08] VITALS: BP 142/81; PULSE 80; RESP 16
== END 2018-12-01 12:30 | disposition home or self-care (01) ==
LOC: EC 09:18
DX: K52.9 Noninfective gastroenteritis and colitis, unspecified (principal); Z87.891 Personal history of nicotine dependence
CPT/HCPCS: 36415; 80053; 83690; 85025; 81003; 74018; 74177; 99284; Q9967

== ENCOUNTER 2023-11-05 09:41 | Day surgery (SDC) | payer OTHER ==
[2023-11-05] MEDS ORDERED: PROPOFOL 10 MG/ML 20 ML VIAL IV ONE (12:15)
[2023-11-05] MEDS ORDERED: LIDOCAINE HCL/PF 20 MG/ML 10 ML AMP ONE (12:15)
[2023-11-05] MEDS ORDERED: LACTATED RINGERS 1,000 ML BAG ONE (12:15)
--- NOTE | 2023-11-07 15:57 | PCN ---
PROCEDURE NOTE REQUESTING PHYSICIAN: Dr. Samm العلي. BRIEF HISTORY: The patient is a 63-year-old pleasant white male scheduled for an elective upper endoscopy as part of evaluation of longstanding history of GERD. He is presently on Prilosec 20 mg twice daily and Pepcid 20 mg at bedtime and symptoms have significantly improved. He is scheduled for an upper endoscopy to rule out complicated reflux disease. PROCEDURE PERFORMED: EGD with biopsy. PREOPERATIVE DIAGNOSIS: Longstanding history of GERD. ANESTHESIA: IV sedation per Anesthesia. DESCRIPTION OF PROCEDURE: After informed consent was obtained from the patient, he was brought in to the endoscopy unit. IV conscious sedation was administered by Anesthesia under continuous monitoring. Initially, the Olympus CF-180 video endoscope was inserted in the mouth and esophagus intubated without any difficulty and was gradually advanced into the stomach and duodenum and carefully examined. Bulb and the second part of the duodenum appeared normal. Scope at this time was withdrawn through the stomach, adequately insufflated with air and upon careful examination mucosa of the antrum had patchy areas of erythema consistent with gastritis and biopsies for H pylori were done. Body of the stomach appeared normal and on retroflexion, cardia and the fundus appeared normal. Scope was then withdrawn through the esophagus. The GE junction was located at 39 cm from the incisors. There was a short-segment of Jackson's esophagus extending 38 to 39 cm from the incisors and multiple biopsies were done from this area. There was a small hiatal hernia. Rest of the esophagus appeared normal. The patient tolerated the procedure well. IMPRESSION: 1. Small hiatal hernia. 2. 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 3. Mild antral gastritis. RECOMMENDATIONS: Findings of this examination were discussed with the patient as well as the family. He was advised to follow up with the biopsy results. If the biopsy confirms the presence of Jackson's esophagus, recommended repeat colonoscopy in 3 years. In the meantime, he will continue with Prilosec 20 mg twice daily and Pepcid at bedtime and follow anti- reflux measures. MMODL / IJN: [id number] /
== END 2023-11-05 13:15 ==
LOC: ORWHC2ENDO 09:41
PROVIDERS: ATTEND Internal Medicine Gastroenterology
DX: K31.9 Disease of stomach and duodenum, unspecified (principal); K22.70 Barrett's esophagus without dysplasia; K44.9 Diaphragmatic hernia without obstruction or gangrene; K21.9 Gastro-esophageal reflux disease without esophagitis; K29.70 Gastritis, unspecified, without bleeding; Z79.899 Other long term (current) drug therapy
CPT/HCPCS: 43239; 88305

== ENCOUNTER 2023-12-23 09:12 | Emergency (ER) | payer OTHER ==
[2023-12-23 09:15] VITALS: RESP 16; TEMP 98.4
--- NOTE | 2023-12-23 09:36 | ED ---
Abdominal Pain HPI - General Chief Complaint: Abdominal Pain Stated Complaint: abd pain Time Seen by Provider: 12/23/23 09:16 Source: patient, RN notes reviewed Mode of arrival: ambulatory Limitations: no limitations - History of Present Illness Initial Comments: This is a 63-year-old male who presents to the emergency department for abdominal pain. States that for the last 2 days he has had pain in the center of his abdomen going around to the middle of his back. Denies any nausea or vomiting. He had 1 bout of diarrhea a couple of days ago which has since resolved. Pain seems to get worse when he tries to urinate or have a bowel movement. Denies any history of similar pain in the past. Denies any fevers/chills, chest pain, or shortness of breath. MD Complaint: abdominal pain, flank pain - Related Data Home Medications Medication Instructions Recorded Confirmed Famotidine [Pepcid] 40 mg PO HS 12/23/23 12/23/23 Omeprazole [PriLOSEC] 20 mg PO BID 12/23/23 12/23/23 Previous Rx's Medication Instructions Recorded Amoxic-Pot Clav 875-125Mg 1 tab PO Q12HR 10 Days #20 tab 12/23/23 [Augmentin 875-125] Ketorolac [Toradol] 10 mg PO Q6HR PRN #15 tab 12/23/23 Allergies Allergy/AdvReac Type Severity Reaction Status Date / Time No Known Allergies Allergy Verified 12/23/23 10:55 Review of Systems ROS Statement: Those systems with pertinent positive or pertinent negative responses have been documented in the HPI. ROS Other: All systems not noted in ROS Statement are negative. Past Medical History Past Medical History: GERD/Reflux History of Any Multi-Drug Resistant Organisms: None Reported Past Surgical History: No Surgical Hx Reported Additional Past Surgical History / Comment(s): Corrective eye surgery when 13 Past Anesthesia/Blood Transfusion Reactions: No Reported Reaction Past Psychological History: No Psychological Hx Reported Past Alcohol Use History: Occasional Past Drug Use History: None Reported - Past Family History Father Additional Family Medical History / Comment(s): Parkinsons Mother Family Medical History: No Reported History General Exam Limitations: no limitations General appearance: alert, in no apparent distress Head exam: Present: atraumatic, normocephalic, normal inspection Respiratory exam: Present: normal lung sounds bilaterally. Absent: respiratory distress, wheezes, rales, rhonchi, stridor Cardiovascular Exam: Present: regular rate, normal rhythm, normal heart sounds. Absent: systolic murmur, diastolic murmur, rubs, gallop, clicks GI/Abdominal exam: Present: soft, tenderness (Diffuse), normal bowel sounds. Absent: distended, guarding, rebound, rigid Back exam: Absent: CVA tenderness (R), CVA tenderness (L) Neurological exam: Present: alert, oriented X3, CN II-XII intact Psychiatric exam: Present: normal affect, normal mood Skin exam: Present: warm, dry, intact, normal color. Absent: rash Course Vital Signs 12/23/23 09:13 Temperature 98.4 F Pulse Rate 89 Respiratory 16 Rate Blood Pressure 142/85 O2 Sat by Pulse 95 Oximetry Medical Decision Making - Medical Decision Making This is a 63-year-old male who presents to the emergency department for abdominal pain. Was pt. sent in by a medical professional or institution? @ -No Did you speak to anyone other than the patient for history? @ -No Did you review nursing and triage notes? @ -Yes, and I agree, it is accurate with regards to the patient's symptoms. Were old charts reviewed? @ -No Differential Diagnosis? @ -Differential Abdominal Pain Men: Appendicitis, cholecystitis, diverticulosis, ischemic bowel, pancreatitis, hepatitis, UTI, gastroenteritis, AAA, incarcerated hernia, bowel obstruction, constipation, inflammatory bowel, hepatitis, peptic ulcer disease, splenic infarction, perforated viscus, testicular torsion, this is not meant to be an all-inclusive list EKG interpreted by me (3pts min.)? @ -EKG interpreted by me demonstrating the following: Sinus rhythm. Ventricular rate 79 bpm, WI interval 149 ms, QRS duration 94 ms, QTc 385 ms. X-rays interpreted by me (1pt min.)? @ -Not obtained CT interpreted by me (1pt min.)? @ -CT scan of the abdomen and pelvis obtained. My interpretation identifies sigmoid wall thickening. U/S interpreted by me (1pt. min.)? @ -Not obtained What testing was considered but not performed? (CT, X-rays, U/S, labs)? Why? @ -None What meds were considered but not given? Why? @ -None Did you discuss the management of the patient with other professionals? @ -No Did you reconcile home meds? @ -No Was smoking cessation discussed for >3mins.? @ -No Was critical care preformed (if so, how long)? @ -No Were there social determinants of health that impacted care today? How? ([place] elessness, low income, unemployed, alcoholism, drug addiction, transportation, low edu. Level, literacy, decrease access to med. care, usp, rehab)? @ -No Was there de-escalation of care discussed even if they declined? (Discuss DNR or withdrawal of care, Hospice)? @ -No What co-morbidities impacted this encounter? (DM, HTN, Smoking, COPD, CAD, C ancer, CVA, Hep., AIDS, mental health diagnosis, sleep apnea, morbid obesity)? @ -GERD Was patient admitted / discharged? @ -Discharged. Lab work demonstrates mild leukocytosis and a mild elevation in LFTs. Urinalysis negative for signs of infection. CT scan of the abdomen and pelvis demonstrates acute uncomplicated sigmoid diverticulitis. Findings review ed with the patient. Patient declined the need for any pain medication in the emergency department. He was given a liter bolus of IV fluids. Because this is uncomplicated and his symptoms are currently controlled, patient is comfortable with starting with outpatient management. Prescription for Augmentin provided to be taken for the next 10 days. He was given strict return parameters and advised to have close follow-up with his primary care provider. Patient discharged home in stable condition. Case discussed with ED attending Dr. Tobar. Return precautions reviewed in depth, the patient is instructed to return to the emergency department with any new, worsening, or concerning symptoms. Patient verbalized understanding. Undiagnosed new problem with uncertain prognosis? @ -None Drug Therapy requiring intensive monitoring for toxicity (Heparin, Nitro, Insulin, Cardizem)? @ -None Were any procedures done? @ -None Diagnosis/symptom? @ -Diverticulitis Acute, or Chronic, or Acute on Chronic? @ -Acute Uncomplicated (without systemic symptoms) or Complicated (systemic symptoms)? @ -Uncomplicated Side effects of treatment? @ -None Exacerbation, Progression, or Severe Exacerbation] @ -Not applicable Poses a threat to life or bodily function? @ -No - Lab Data Result diagrams: 12/23/23 09:32 12/23/23 09:32 Lab Results 10/08/24 10/08/24 10/08/24 Range/Units 09:32 09:32 09:32 WBC 11.6 H (3.8-10.6) k/uL RBC 5.23 (4.30-5.90) m/uL Hgb 16.1 (13.0-17.5) gm/dL Hct 47.1 (39.0-53.0) % MCV 89.9 (80.0-100.0) fL MCH 30.8 (25.0-35.0) pg MCHC 34.3 (31.0-37.0) g/dL RDW 13.3 (11.5-15.5) % Plt Count 243 (150-450) k/uL MPV 9.0 Neutrophils % 75 % Lymphocytes % 13 % Monocytes % 8 % Eosinophils % 2 % Basophils % 0 % Neutrophils # 8.7 H (1.3-7.7) k/uL Lymphocytes # 1.5 (1.0-4.8) k/uL Monocytes # 0.9 (0-1.0) k/uL Eosinophils # 0.2 (0-0.7) k/uL Basophils # 0.0 (0-0.2) k/uL Sodium 141 (137-145) mmol/L Potassium 4.5 (3.5-5.1) mmol/L Chloride 107 (98-107) mmol/L Carbon Dioxide 23 (22-30) mmol/L Anion Gap 11 mmol/L BUN 18 (9-20) mg/dL Creatinine 0.79 (0.66-1.25) mg/dL Est GFR (CKD-EPI)AfAm >90 (>60 ml/min/1.73 sqM) Est GFR (CKD-EPI)NonAf >90 (>60 ml/min/1.73 sqM) Glucose 103 H (74-99) mg/dL Plasma Lactic Acid Juan Jose 1.5 (0.7-2.0) mmol/L Calcium 10.1 (8.4-10.2) mg/dL Total Bilirubin 1.3 (0.2-1.3) mg/dL AST 44 (17-59) U/L ALT 67 H (4-49) U/L Alkaline Phosphatase 139 H (38-126) U/L Total Protein 8.6 H (6.3-8.2) g/dL Albumin 5.0 (3.5-5.0) g/dL Amylase 53 (30-110) U/L Lipase 48 (23-300) U/L Urine Color Urine Appearance (Clear) Urine pH (5.0-8.0) Ur Specific [place] (1.001-1.035) Urine Protein (Negative) Urine Glucose (UA) (Negative) Urine Ketones (Negative) Urine Blood (Negative) Urine Nitrite (Negative) Urine Bilirubin (Negative) Urine Urobilinogen (<2.0) mg/dL Ur Leukocyte Esterase (Negative) 12/23/23 Range/Units 09:32 WBC (3.8-10.6) k/uL RBC (4.30-5.90) m/uL Hgb (13.0-17.5) gm/dL Hct (39.0-53.0) % MCV (80.0-100.0) fL MCH (25.0-35.0) pg MCHC (31.0-37.0) g/dL RDW (11.5-15.5) % Plt Count (150-450) k/uL MPV Neutrophils % % Lymphocytes % % Monocytes % % Eosinophils % % Basophils % % Neutrophils # (1.3-7.7) k/uL Lymphocytes # (1.0-4.8) k/uL Monocytes # (0-1.0) k/uL Eosinophils # (0-0.7) k/uL Basophils # (0-0.2) k/uL Sodium (137-145) mmol/L Potassium (3.5-5.1) mmol/L Chloride (98-107) mmol/L Carbon Dioxide (22-30) mmol/L Anion Gap mmol/L BUN (9-20) mg/dL Creatinine (0.66-1.25) mg/dL Est GFR (CKD-EPI)AfAm (>60 ml/min/1.73 sqM) Est GFR (CKD-EPI)NonAf (>60 ml/min/1.73 sqM) Glucose (74-99) mg/dL Plasma Lactic Acid Juan Jose (0.7-2.0) mmol/L Calcium (8.4-10.2) mg/dL Total Bilirubin (0.2-1.3) mg/dL AST (17-59) U/L ALT (4-49) U/L Alkaline Phosphatase (38-126) U/L Total Protein (6.3-8.2) g/dL Albumin (3.5-5.0) g/dL Amylase (30-110) U/L Lipase (23-300) U/L Urine Color Yellow Urine Appearance Clear (Clear) Urine pH 5.5 (5.0-8.0) Ur Specific [place] 1.026 (1.001-1.035) Urine Protein Trace H (Negative) Urine Glucose (UA) Negative (Negative) Urine Ketones Negative (Negative) Urine Blood Negative (Negative) Urine Nitrite Negative (Negative) Urine Bilirubin Negative (Negative) Urine Urobilinogen <2.0 (<2.0) mg/dL Ur Leukocyte Esterase Negative (Negative) - Radiology Data Radiology results: report reviewed, image reviewed Disposition Clinical Impression: Diverticulitis Disposition: HOME SELF-CARE Instructions (If sedation given, give patient instructions): Diverticulitis (ED), Diverticulitis (DC), Diverticulitis Diet (ED) Additional Instructions: Return to the emergency department with any new, worsening, or concerning symptoms. Take the antibiotic as prescribed for 10 days. Take the Toradol with Tylenol as needed for pain relief. If you choose to take the Toradol, do not take any other anti-inflammatories such as ibuprofen, take one or the other. F ollow up with your primary care provider in 1-2 days. Prescriptions: Amoxic-Pot Clav 875-125Mg [Augmentin 875-125] 1 tab PO Q12HR 10 Days #20 tab Ketorolac [Toradol] 10 mg PO Q6HR PRN #15 tab PRN Reason: Pain Is patient prescribed a controlled substance at d/c from ED?: No Referrals: Samm العلي [Primary Care Provider] - 1-2 days Time of Disposition: 10:56
[2023-12-23] MEDS: SODIUM CHLORIDE 0.9% 1,000 ML IV STA (09:39)
[2023-12-23 09:59] LABS: ALT 67 U/L (4-49); AST 44 U/L (17-59); African American GFR (CKD) >90 (>60 ml/min/1.73 sqM); Alkaline Phosphatase 139 U/L (38-126); Amylase 53 U/L (30-110); Anion Gap 11 mmol/L; Blood Urea Nitrogen 18 mg/dL (9-20); Calcium 10.1 mg/dL (8.4-10.2); Carbon Dioxide 23 mmol/L (22-30); Chloride 107 mmol/L (98-107); Glucose 103 mg/dL (74-99); Lipase 48 U/L (23-300); Non-African American GFR(CKD) >90 (>60 ml/min/1.73 sqM); Potassium 4.5 mmol/L (3.5-5.1); Sodium 141 mmol/L (137-145); Total Bilirubin 1.3 mg/dL (0.2-1.3); Total Protein 8.6 g/dL (6.3-8.2)
[2023-12-23 10:00] LABS: Basophils % (A) 0 %; Eosinophils # (A) 0.2 k/uL (0-0.7); Eosinophils % (A) 2 %; HCT 47.1 % (39.0-53.0); HGB 16.1 gm/dL (13.0-17.5); Lymphocytes # (A) 1.5 k/uL (1.0-4.8); Lymphocytes % (A) 13 %; MCH 30.8 pg (25.0-35.0); MCHC 34.3 g/dL (31.0-37.0); MCV 89.9 fL (80.0-100.0); Monocytes # (A) 0.9 k/uL (0-1.0); Monocytes % (A) 8 %; Neutrophils # (A) 8.7 k/uL (1.3-7.7); Neutrophils % (A) 75 %; Platelet Count 243 k/uL (150-450); RBC 5.23 m/uL (4.30-5.90); RDW 13.3 % (11.5-15.5); WBC 11.6 k/uL (3.8-10.6)
[2023-12-23 10:30] LABS: Appearance,Urine Clear (Clear); Bilirubin,Urine Negative (Negative); Blood,Urine Negative (Negative); Color,Urine Yellow; Glucose,Urine (UA) Negative (Negative); Ketones,Urine Negative (Negative); Leukocyte Esterase,Urine Negative (Negative); Nitrite,Urine Negative (Negative); PH, Urine 5.5 (5.0-8.0); Protein,Urine Trace (Negative); Specific Gravity,Urine 1.026 (1.001-1.035); Urobilinogen,Urine <2.0 mg/dL (<2.0)
--- NOTE | 2023-12-23 10:48 | CT ---
EXAMINATION TYPE: CT abdomen pelvis w con CT DLP: 1323.9 mGycm, Automated exposure control for dose reduction was used. DATE OF EXAM: 12/23/2023 10:41 AM COMPARISON: CT abdomen pelvis 12/01/2018 CLINICAL INDICATION:Male, 63 years old with history of abdominal pain, acute, nonlocalized; low pelvi c pain TECHNIQUE: Standard CT of the abdomen and pelvis following the administration of 100 cc of Isovue 3 00 IV contrast material. Coronal and sagittal reformats were performed. FINDINGS: LOWER CHEST: Posterior dependent subsegmental atelectasis is noted. ABDOMEN LIVER: Unremarkable GALLBLADDER AND BILE DUCTS: Unremarkable. PANCREAS: Unremarkable. SPLEEN: Unremarkable. ADRENAL GLANDS: Unremarkable. KIDNEYS AND URETERS: No evidence of hydronephrosis or renal calculus. The kidneys and symmetrically. Couple of subcentimeter hypodense foci within the right kidney redemonstrated and too small to accura tely characterize and like represent cysts. Contrast is demonstrated within both collecting systems o n the delayed phase. PELVIS BLADDER: Incompletely distended but grossly unremarkable. REPRODUCTIVE: Unremarkable. ABDOMEN & PELVIS STOMACH AND BOWEL: Stomach and duodenum are unremarkable. Sigmoid wall thickening with diverticula an d surrounding fat stranding. No definitive surrounding organized fluid collection at this time. The a ppendix is within normal limits. No evidence of bowel obstruction. PERITONEUM: No evidence of pneumoperitoneum or free fluid. VASCULATURE: Mild atherosclerotic calcifications are present throughout the abdominal aorta and its b ranches. No evidence of aortic aneurysm. MUSCULOSKELETAL: No acute osseous abnormalities. Grade 1 anterolisthesis of L5 on S1 with bilateral p ars defects. LYMPH NODES: No gross evidence for lymphadenopathy. SOFT TISSUE/ABDOMINAL WALL: Unremarkable IMPRESSION: 1. Uncomplicated acute sigmoid diverticulitis. 2. Grade 1 anterolisthesis of L5 on S1 with bilateral pars defects redemonstrated. [facility], , 12/23/2023 10:46 AM
[2023-12-23] MEDS: ACET/COD 300 MG/30 MG STARTER PACK 6 TAB BTL PO STA (11:09)
[2023-12-23 11:16] VITALS: BP 138/79; PULSE 81
== END 2023-12-23 11:15 | disposition home or self-care (01) ==
LOC: EC 09:12
CPT/HCPCS: 36415; 74177; 80053; 81003; 82150; 83605; 83690; 85025; 93005; 96360; 96361; 99284